=== PATIENT | female | born 1985 | race Caucasian/White ===

== ENCOUNTER 2019-12-07 10:51 | Emergency (ER) | payer BC, MEDICAID ==
[~2019-12-07] VITALS: Ht 170.2 cm; Wt 124.7 kg
[2019-12-07 10:51] VITALS: BP_SYST 109
[2019-12-07 12:00] VITALS: BP_SYST 109
== END 2019-12-07 12:00 | disposition home or self-care (01) ==
LOC: SED 10:51
DX: F41.9 Anxiety disorder, unspecified (principal); R05 Cough
CPT/HCPCS: 99283